=== PATIENT | male | born 1965 ===

== ENCOUNTER 2018-11-20 13:20 | Outpatient (CLI) | payer OTHER | END 2018-11-20 13:22 | disposition home or self-care (01) | LOC: SONOGRAMA 13:20 | DX: N28.89 Other specified disorders of kidney and ureter (principal) ==

== ENCOUNTER → 2018-11-20 14:01 | Outpatient (CLI) | payer OTHER | END | disposition home or self-care (01) | LOC: LAB 14:01 | DX: N40.0 Benign prostatic hyperplasia without lower urinary tract symptoms (principal); N39.0 Urinary tract infection, site not specified; R31.9 Hematuria, unspecified ==

== ENCOUNTER 2022-02-01 10:18 | Emergency (ER) | payer OTHER ==
[~2022-02-01] VITALS: Ht 182.9 cm; Wt 88.5 kg
[2022-02-01] MEDS ORDERED: AMLODIPINE BESY10 MG PO (10:25)
[2022-02-01] MEDS ORDERED: JENTADUETO 2.51 EAC2 PO (10:25)
[2022-02-01] MEDS ORDERED: VALSARTAN-HCTZ1 EAC3 PO (10:26)
== END 2022-02-01 10:58 | disposition home or self-care (01) ==
LOC: ER 10:18
DX: B02.9 Zoster without complications (principal)